=== PATIENT | male | born 1990 | race Two or more races ===

== ENCOUNTER 2024-08-15 19:59 | Emergency (ER) | payer SELFPAY ==
[~2024-08-15] VITALS: Ht 180.3 cm; Wt 72.9 kg
[2024-08-15 20:15] VITALS: BP 135/82; PULSE 102; RESP 14; TEMP 99; O2SAT 98
[2024-08-16] MEDS ORDERED: IBUP-1456 PO (22:39)
[2024-08-16] MEDS ORDERED: DOXY100C4 PO (22:39)
== END 2024-08-16 00:17 | disposition left against medical advice (07) ==
LOC: ER 19:59
DX: S50.861A Insect bite (nonvenomous) of right forearm, initial encounter (principal); Z53.21 Procedure and treatment not carried out due to patient leaving prior to being seen by health care provider; W57.XXXA Bitten or stung by nonvenomous insect and other nonvenomous arthropods, initial encounter; Y93.89 Activity, other specified; Y92.89 Other specified places as the place of occurrence of the external cause; Y99.8 Other external cause status

== ENCOUNTER 2024-08-16 20:47 | Emergency (ER) | payer SELFPAY ==
[~2024-08-16] VITALS: Ht 180.3 cm; Wt 73.7 kg
--- NOTE | 2024-08-16 21:07 | ED.PDOC ---
History of Present Illness(SKN HPI Comments PATIENT C/O RIGHT FOREARM "INSECT BITE"/ ABSCESS FOR 3-4 DAYS. SURROUNDING TISSUE IS RED, CENTER IS OPEN, PT STATES IT WAS DRAINING. DENIES FEVER, CHILLS, NAUSEA OR VOMITING. Chief Complaint: Abscess Time Seen by MD: 20:55 History of Present Illness: Nurses Notes, Medications, Allergies Allergies: Coded Allergies: NO KNOWN ALLERGIES (Unverified , 08/15/24) Home Meds Active Scripts Ibuprofen (Ibuprofen) 800 Mg Tab, 800 MG PO Q8HP PRN for 6 Days, #18 TAB Prov:BERNY NICHOLSON [facility]ANB[facility] PEELER 08/16/24 Doxycycline Hyclate (Doxycycline Hyclate) 100 Mg Cap, 100 MG PO BID for 7 Days, #14 CAP Prov:BERNY NICHOLSON [facility] 08/16/24 Information Source: Patient Past Medical History PAST MEDICAL HISTORY: Denies Surgical History: Denies all surgeries Family History Family History: Reviewed,noncontributory to illness, No family hx of Cancer, No family hx of DM, No family hx of Heart carlos, No family hx of HTN, No family hx ofKidney carlos, No family hx of Liver carlos, No family hx of Lung carlos, No family hx of Stroke Social History Smoker: Non-Smoker Alcohol: Denies ETOH Use Drugs: Denies Drug Use Constitutional: denies: chills, diaphoresis, fatigue, fever, malaise, sweats, weakness, others EENTM: denies: blurred vision, double vision, ear bleeding, ear discharge, ear drainage, ear pain, ear ringing, eye pain, eye redness, hearing loss, mouth pain, mouth swelling, nasal discharge, nose bleeding, nose congestion, nose pain, photophobia, tearing, throat pain, throat swelling, voice changes, others Respiratory: denies: cough, hemoptysis, orthopnea, SOB at rest, shortness of breath, SOB with excertion, stridor, wheezing, others Cardiovascular: denies: chest pain, dizzy spells, diaphoresis, Dyspnea on exertion, edema, irregular heart beat, left arm pain, lightheadedness, palpitations, PND, syncope, others Gastrointestinal: denies: abdomen distended, abdominal pain, blood streaked bowels, constipated, diarrhea, dysphagia, difficulty swallowing, hematemesis, melena, nausea, poor appetite, poor fluid intake, rectal bleeding, rectal pain, vomiting, others Genitourinary: denies: burning, dysuria, flank pain, frequency, hematuria, incontinence, penile discharge, penile sore, pain, testicle pain, testicle swelling, urgency, others Neurological: denies: dizziness, fainting, headache, left sided numbness, left sided weakness, numbness, paresthesia, pre-existing deficit, right sided numbness, right sided weakness, seizure, speech problems, tingling, tremors, weakness, others Musculoskeletal: denies: back pain, gout, joint pain, joint swelling, muscle pain, muscle stiffness, neck pain, others Integumetry: reports: rash (RIGHT DORSAL FOREARM); denies: bruises, change in color, change in hair/nails, dryness, laceration, lesions, lumps, wounds, others Allergic/Immunocompromised: denies: Difficulty Healing, Frequent Infections, H meri, Itching, others Endocrine: denies: excessive hunger, excessive sweating, excessive thirst, excessive urination, flushing, intolerance to cold, intolerance to heat, unexplained weight gain, unexplained weight loss, others Psychiatric: denies: anxiety, bipolar disorder, depression, hopeless, panic disorder, schizophrenia, sleepless, suicidal, others Physical Exam General Appearance: No Apparent Distress, Normal HEENT: Pharynx Normal Neck: Full Range of Motion, Non-Tender Respiratory: Lungs Clear, No Respiratory Distress, Normal Breath Sounds Cardiovascular: No Edema, No JVD, No Murmur, No Gallop, Normal Peripheral Pulses, Regular Rate/Rhythm Breast Exam: Deferred Gastrointestinal: No Organomegaly, Non Tender, No Pulsatile Mass, Normal Bowel Sounds, Soft Genitalia: Deferred Pelvic: Deferred Rectal: Deferred Extremities: Normal capillary refill, Normal inspection, Normal range of motion, Non-tender, No pedal edema Musculoskeletal : Apperance: Normal Neurologic: Alert, cereal popper II-XII nml as Tested, No Motor Deficits, Normal Affect, Normal Mood, No Sensory Deficits Cerebellar Function: Normal Reflexes: Normal Skin: Dry, Normal Color, Warm, Other (QUARTER SIZE ABSCESS RIGHT DORSAL FOREARM WITH CENTER PUNCTURE WOUND MODERATE AMOUNT OF SURROUNDING ERYTHEMA, NON FLUCTUANT NO NOTED STREAKING OR DRAINAGE NO NOTED LOCAL ADENOPATHY STRENGTH SENSORY MOTION INTACT.) Lymphatic: No Adenopathy Was a procedure done? Was a procedure done?: No Differential Diagnosis (INTG) Differential Diagnosis: Cellulitis, Hematoma, Insect Envenomation, Puncture Wound X-Ray, Labs, Meds, VS Vital Signs Date Time Temp Pulse Resp B/P (MAP) Pulse Ox O2 Delivery O2 Flow Rate FiO2 08/16/24 20:55 98.2 116 18 140/83 (102) 97 98.2 Lab Test 08/16/24 21:31 Range/Units White Blood Count 4.8 4.4-10.8 10^3/uL Red Blood Count 5.16 4.5-5.90 10^6/uL Hemoglobin 15.1 13.5-17.5 g/dL Hematocrit 43.4 41.0-53.0 % Mean Corpuscular Volume 84.3 80.0-100.0 fL Mean Corpuscular Hemoglobin 29.2 28.0-32.0 pg Mean Corpuscular Hemoglobin Concent 34.7 32.0-36.0 g/dL Red Cell Distribution Width 13.6 11.8-14.3 % Platelet Count 272 140-450 10^3/uL Mean Platelet Volume 6.6 L 6.9-10.8 fL Neutrophils (%) (Auto) 57.1 37.0-80.0 % Lymphocytes (%) (Auto) 29.0 10.0-50.0 % Monocytes (%) (Auto) 10.9 0.0-12.0 % Eosinophils (%) (Auto) 1.9 0.0-7.0 % Basophils (%) (Auto) 1.1 0.0-2.0 % Neutrophils # (Auto) 2.8 1.6-8.6 10 ^3/uL Lymphocytes # (Auto) 1.4 0.4-5.4 10 ^3/uL Monocytes # (Auto) 0.5 0-1.3 10 ^3/uL Eosinophils # (Auto) 0.1 0-0.8 10 ^3/uL Basophils # (Auto) 0.1 0-0.2 10 ^3/uL Nucleated Red Blood Cells 0.1 % X-Ray, Labs, Meds, VS Comment PATIENT GIVEN TORADOL 60 MG IM, CLINDAMYCIN 900 MG IV PIGGYBACK. ABSCESS NOT READY FOR I AND D ADVISED TO APPLY WARM FACE CLOTH SEVERAL TIMES A DAY TO ENCOURAGE DRAINAGE ADVISED NOT TO POP OR POKE. PATIENT REQUESTING DISCHARGE AT THIS TIME. SCRIPT DOXYCYCLINE TWICE DAILY X7 DAYS. MOTRIN 800 MG T.I.D. P.R.N. PAIN. ADVISED TO TAKE MEDICATIONS PRESCRIBED SIDE EFFECTS WERE DISCUSSED. FOLLOW UP WITH YOUR PCP, URGENT CARE OR BACK HERE IN 2 DAYS FOR ABSCESS RE- EVALUATION. ER RETURN PRECAUTIONS GIVEN PATIENT INDICATES UNDERSTANDING AND AGREES WITH DISCHARGE PLAN OF CARE. Time of 1ST Reevaluation: 19:45 Reevaluation 1ST: Unchanged Time of 2ND Reevaluation: 23:31 Reevaluation 2ND: Improved Patient Education/Counseling: Diagnosis, Treatment, Prognosis, Need For Follow Up Family Education/Counseling: No Family Present Departure 1 Departure Time of Disposition: 23:31 Impression: Primary Impression: Abscess Disposition: 01 HOME / SELF CARE / HOMELESS Condition: Stable e-Prescriptions Ibuprofen (Ibuprofen) 800 Mg Tab 800 MG PO Q8HP PRN for 6 Days, #18 TAB Prov: BERNY NICHOLSON 08/16/24 Doxycycline Hyclate (Doxycycline Hyclate) 100 Mg Cap 100 MG PO BID for 7 Days, #14 CAP Prov: BERNY NICHOLSON 08/16/24 Discharged With: Self Critical Care Note Critical Care Time?: No Stability Stability form required: No BERNY NICHOLSON August 16, 2024 21:07
[2024-08-16] MEDS: CLINDAMYCIN 900MG IV 50 ML IV ONE (21:38)
[2024-08-16] MEDS: KETOROLAC TROMETH 30 MG/ML 1ML VIAL IV ONE (21:39)
[2024-08-16 21:46] LABS: Basophils # (auto) 0.1 10 ^3/uL (0-0.2); Basophils % (auto) 1.1 % (0.0-2.0); Eosinophils # (auto) 0.1 10 ^3/uL (0-0.8); Eosinophils % (auto) 1.9 % (0.0-7.0); Hematocrit 43.4 % (41.0-53.0); Hemoglobin 15.1 g/dL (13.5-17.5); Lymphocytes # (auto) 1.4 10 ^3/uL (0.4-5.4); Mean Corpuscular Hemoglobin 29.2 pg (28.0-32.0); Mean Corpuscular Hgb Conc. 34.7 g/dL (32.0-36.0); Mean Corpuscular Volume 84.3 fL (80.0-100.0); Monocytes # (auto) 0.5 10 ^3/uL (0-1.3); Monocytes % (auto) 10.9 % (0.0-12.0); Neutrophils # (auto) 2.8 10 ^3/uL (1.6-8.6); Neutrophils % (auto) 57.1 % (37.0-80.0); Nucleated Red Blood Cells % 0.1 %; Platelet Count (auto) 272 10^3/uL (140-450); Red Blood Cells 5.16 10^6/uL (4.5-5.90); Red Cell Distribution Width 13.6 % (11.8-14.3); White Blood Cell 4.8 10^3/uL (4.4-10.8)
[2024-08-16] MEDS ORDERED: IBUP-1456 PO (22:39)
[2024-08-16] MEDS ORDERED: DOXY100C4 PO (22:39)
[2024-08-16 23:45] VITALS: BP 140/83; PULSE 116; RESP 18; TEMP 98.2; O2SAT 97
== END 2024-08-16 23:32 | disposition home or self-care (01) ==
LOC: ER 20:47
DX: L02.413 Cutaneous abscess of right upper limb (principal); Z79.899 Other long term (current) drug therapy
CPT/HCPCS: 36415; 85025; J1885; J3490